=== PATIENT | male | born 1960 | race Two or more races ===

== ENCOUNTER 2024-10-25 07:51 | Day surgery (SDC) | payer OTHER ==
[~2024-10-25 07:51] MED LIST: METHOTREXATE2.5 MG PO; NAPR500T14 PO; PROTONIX20 MG PO
[2024-10-25] MEDS ORDERED: DIBUCAINE 30 GM TUBE ONE (11:05)
[2024-10-25] MEDS ORDERED: BUPIVACAINE HCL/Mpf 0.5% 10ML VIAL ONE (11:05)
[2024-10-25] MEDS ORDERED: HEMOSTATIC MATRIX 1 KIT KIT TOP ONE (11:05)
[2024-10-25] MEDS ORDERED: LIDOCAINE HCL 1%/EPINEPHRINE 20ML VIAL IJ ONE (11:05)
[2024-10-25] MEDS ORDERED: POVIDONE-IODINE 118 ML BOTT TOP ONE (11:05)
[2024-10-25] MEDS ORDERED: METRONIDAZOLE/SODIUM CHLORIDE 500 MG/100 ML PIGGYBACK IV ONE (11:06)
[2024-10-25] MEDS ORDERED: CEFTRIAXONE SODIUM 2,000 MG VIAL ONE (11:06)
[2024-10-25] MEDS ORDERED: MORPHINE SULFATE 4 MG/ML VIAL IV ONE (15:30)
== END 2024-10-25 16:55 | disposition home or self-care (01) ==
LOC: CIR.AMB 07:51
PROVIDERS: ATTEND Colon & Rectal Surgery
DX: K60.1 Chronic anal fissure (principal); K92.2 Gastrointestinal hemorrhage, unspecified; K62.4 Stenosis of anus and rectum